=== PATIENT | female | born 1955 | race African-American/Black ===

== ENCOUNTER 2018-04-06 20:45 | Inpatient (IN) | payer MEDICARE, MEDICAID ==
[2018-04-06 23:11] VITALS: BP 155/99
[2018-04-06] MEDS ORDERED: Magnesium Hydroxide (MOM) 30 mL UDC PO PRN (23:11)
[2018-04-06] MEDS ORDERED: Maalox 30 mL Cup PO PRN (23:11)
--- NOTE | 2018-04-07 08:48 | History and Physical ---
History of Present Illness - HPI Chief Complaint: Suicide attempt HPI: Patient was take to ER due to suicide attempt, patient took an overdose of 30 tabs of trazadone. 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: Other (Patient has Hx of multiple back surgeries.) GI: Report: No Pertinent Hx Psych: Report: Depression Musculoskeletal: Report: Other (Multiple back surgeries.) Rheumatologic: Report: No pertinent Hx Infectious Disease: Report: No Pertinent Hx Renal/: Report: No Pertinent Hx Endocrine: Report: No Pertinent Hx Dermatology: Report: No Pertinent Hx - Past Surgical History Past Surgical History: Other (Multiple back surgeries.) Family Medical History - Family Member Mother History Unknown: Yes Social History Smoke: No Alcohol: None Drugs: Other (Opiates addiction) Lives: With Family Domestic Violence: Negative - Allergies Allergies/Adverse Reactions: Allergies Allergy/AdvReac Type Severity Reaction Status Date / Time No Known Allergies Allergy Verified 04/06/18 23:10 Review of Systems - Review of Systems Constitutional: Report: Weakness Eyes: Report: No Significant ENT: Report: No Significant Respiratory: Report: No Significant Cardiovascular: Report: No Significant Gastrointestinal: Report: No Significant Genitourinary: Report: No Significant Musculoskeletal: Report: Back Pain Skin: Report: No Significant Neurological: Report: Weakness Physical Exam - Physical Exam HEENT: Report: Ears Nose Throat within normal limits Neck: Report: Within normal limits Cardiovascular Systems: Report: Regular, Rate and Rhythm Respiratory: Report: Breath Sounds are within normal limits Back: Report: Other (Pain at palpation on all spine) Extremities: Report: Non-tender to palpation., Other (Patient uses a walker. Limited movements of lower extremities.) Skin: Report: Color of skin is within normal limits Neuro/Psych: Report: Depressed affect - Assessment Assessment: Patient is awake, alert, calm, in no acute distress, complaining of back pain. Dx: Suicide attempt, HTN, Chronic back pain, Long addiction to opiates. - Plan Plan: Patient is follow by Psychiatry, amlodipine is started, and norco. Will continue to monitor.
[2018-04-07] MEDS: Sulfamethoxazole/TMP 800/160mg Tab PO SCH ×2 (10:13→17:10)
[2018-04-07] MEDS: Multivitamin Tab PO SCH (10:14)
[2018-04-07] MEDS: Diclofenac 75 mg Tab PO SCH ×2 (10:14→17:10)
[2018-04-07] MEDS: Hydrocodone/APAP 5mg/325mg Tab PO PRN ×2 (12:31→20:57)
--- NOTE | 2018-04-08 02:09 | Psychiatric Evaluation ---
DATE OF SERVICE: 04/06/2018 IDENTIFYING DATA: The patient is a 62-year-old -[place]er woman living by herself. Information obtained directly interviewing the patient as well as reviewing the admission papers. JUSTIFICATION FOR HOSPITALIZATION: The patient is admitted under 5150 as a danger to self. CHIEF COMPLAINT: "I got upset and after having an argument with my daughter. I took a bunch of pills." HISTORY OF PRESENT ILLNESS: This is the first psychiatric hospitalization to [facility] for this patient who has taken an overdose on the Restoril in an attempt to end her life and hence the patient has been admitted on the 5150. As per the information obtained, the patient is reported to have an argument with her daughter. The patient is reporting that her 14-year-old daughter has been given an opportunity to attend the [place] and her daughter has dressed with the 14-year-old granddaughter and to that extent where the 14-year-old was looking like a 25-year-old and the patient has made a comment to her daughter and from there the argument ensued and the patient's daughter has put the patient down and the patient felt humiliated and hence taken an overdose on Restoril in an attempt to end her life. PAST PSYCHIATRIC HISTORY: The patient denies any prior psychiatric hospitalizations. MEDICAL HISTORY: Physical examination is requested by Dr. Ayers. SUBSTANCE ABUSE HISTORY: None. PHYSICAL OR SEXUAL ABUSE HISTORY: None. LEGAL PROBLEMS: None at this time. STRENGTH AND ASSETS: The patient is motivated. 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 MENTAL STATUS EXAMINATION: The patient is a 62-year-old woman looking her stated age, wheelchair bound, superficially cooperative. Eye contact is noted to be poor. Mood is depressed. Affect is constricted. Insight and judgment are noted to be very much impaired. Impulse control is limited. The patient has made a suicidal attempt by overdosing on medications. The patient has been taken to the [facility] Emergency Room. The patient has been medically stabilized and has been transferred over here for further stabilization. The patient denies auditory hallucinations, no delusions are noted. Insight and judgment at this time are noted to be impaired. Impulse control is noted to be poor. Attention span and concentration are noted to be fair, started on long-term memory also noted to be intact. DIAGNOSTIC IMPRESSION: AXIS I: Major depressive disorder, recurrent and severe. b. Overdose on medications. AXIS II: None. AXIS III: As per Dr. Ayers. IMMEDIATE TREATMENT PLAN: The patient is going to be observed on inpatient unit, provided with supportive psychotherapy. The patient is going to be closely monitored. Once stabilized, the patient is going to be discharged to self-care to be followed up on an outpatient basis. JOB# [id number]
[2018-04-08] MEDS: Hydrocodone/APAP 5mg/325mg Tab PO PRN ×3 (03:11→20:30)
--- NOTE | 2018-04-08 08:54 | General Progress Note ---
Subjective - Review of Systems Service Date: 04/08/18 Subjective: I am on pain Objective - Physical Exam Vitals and I&O: Vital Signs Temp 98.2 F 04/08/18 06:33 Pulse 84 04/08/18 06:33 Resp 19 04/08/18 06:33 BP 116/53 04/08/18 06:33 Pulse Ox 97 04/08/18 06:33 Intake & Output 04/07/18 04/08/18 04/08/18 18:59 06:59 18:59 Intake Total 240 Balance 240 Intake: Oral 240 Other: # Voids 4 3 # Bowel Movements 4 1 Stool Characteristics Liquid Brown Black Active Medications: Current Medications Acetaminophen/Hydrocodone Bitart ([place] 5mg/325mg) 1 tab PO Q6H PRN PRN Reason: Pain (Severe) Stop: 06/06/18 09:01 Last Admin: 04/08/18 03:11 Dose: 1 tab Al Hydrox/Mg Hydrox/Simethicone (Maalox) 30 ml PO Q4HR PRN PRN Reason: GI DISTRESS Stop: 06/05/18 23:10 Amlodipine Besylate (Norvasc) 5 mg PO DAILY [facility] Stop: 06/06/18 08:59 Last Admin: 04/07/18 10:13 Dose: 5 mg Diclofenac Sodium (Voltaren) 75 mg PO BID [facility] Stop: 06/06/18 09:14 Last Admin: 04/07/18 17:10 Dose: 75 mg Duloxetine HCl (Cymbalta) 30 mg PO DAILY [facility]; Protocol Stop: 06/07/18 08:59 Lorazepam (Ativan) 0.5 mg PO Q4HR PRN; Protocol PRN Reason: Anxiety Stop: 05/06/18 23:10 Magnesium Hydroxide (Milk Of Magnesia) 30 ml PO HS PRN PRN Reason: Constipation Miscellaneous (Clinical Monitoring) 1 ea MC DAILY [facility] Stop: 06/06/18 08:59 Multivitamins/Vitamin C (Theragran) 1 tab PO DAILY [facility] Stop: 06/06/18 08:59 Last Admin: 04/07/18 10:14 Dose: 1 tab Topiramate (Topamax) 25 mg PO DAILY [facility] Stop: 06/06/18 14:14 Last Admin: 04/07/18 14:30 Dose: 25 mg Trimethoprim/Sulfamethoxazole (Bactrim Ds) 1 tab PO BID [facility] Stop: 04/13/18 17:01 Last Admin: 04/07/18 17:10 Dose: 1 tab Zolpidem Tartrate (Ambien) 5 mg PO HS PRN PRN Reason: Insomnia Stop: 06/05/18 23:10 Last Admin: 04/07/18 20:58 Dose: 5 mg General: Alert, Oriented x3, No acute distress HEENT: Atraumatic Neck: Supple Cardiovascular: Regular rate Lungs: Clear to auscultation Abdomen: Bowel sounds Extremities: Other (No edema, walks with assistance) Neurological: Other (Walks with assistance) Skin: Other (warm and dry) Psych/Mental Status: Other (patient is angry) Assessment/Plan - Assessment Assessment: Patient is awake, alert, calm, in no acute distress, complaining of back pain. Dx: Suicide attempt, HTN, Chronic back pain, Long addiction to opiates, Migraine. - Plan Plan: Patient is follow by Psychiatry, amlodipine is started, and norco. Will continue to monitor.
[2018-04-08] MEDS: Diclofenac 75 mg Tab PO SCH ×2 (09:29→16:09)
[2018-04-08] MEDS: Sulfamethoxazole/TMP 800/160mg Tab PO SCH ×2 (09:29→16:09)
[2018-04-08] MEDS: Multivitamin Tab PO SCH (09:48)
--- NOTE | 2018-04-08 15:41 | Progress Notes ---
DATE: 04/08/2018 SUBJECTIVE: Staff was spoken to. The patient is interviewed. Mood is noted to be irritable. Affect is constricted. The patient is still feeling frustrated that her daughter has been talking back and putting her down like that. The patient's coping skills are noted to be extremely poor at this time. Insight and judgment are also noted to be impaired. No side effects to medications are noted. The patient has made suicidal gesture and the patient is insisting that she is okay now and she needs to be leaving. ASSESSMENT: The patient is still depressed. PLAN: To continue the patient with the current medications and followup. [facility]# [id number]
[2018-04-08] MEDS: Diphenoxylate/Atropine 2.5mg Tab PO PRN (17:20)
[2018-04-09] MEDS: Hydrocodone/APAP 5mg/325mg Tab PO PRN ×2 (02:15→20:16)
--- NOTE | 2018-04-09 08:45 | General Progress Note ---
Subjective - Review of Systems Service Date: 04/09/18 Subjective: I have pain Objective - Physical Exam Vitals and I&O: Vital Signs Temp 97.6 F 04/09/18 06:38 Pulse 85 04/09/18 06:38 Resp 20 04/09/18 06:38 BP 108/64 04/09/18 06:38 Pulse Ox 99 04/09/18 06:38 Intake & Output 04/08/18 04/09/18 04/09/18 18:59 06:59 18:59 Intake Total 360 Balance 360 Intake: Oral 360 Other: # Voids 2 # Bowel Movements 5 2 Active Medications: Current Medications Acetaminophen/Hydrocodone Bitart ([place] 5mg/325mg) 1 tab PO Q6H PRN PRN Reason: Pain (Severe) Stop: 06/06/18 09:01 Last Admin: 04/09/18 02:15 Dose: 1 tab Al Hydrox/Mg Hydrox/Simethicone (Maalox) 30 ml PO Q4HR PRN PRN Reason: GI DISTRESS Stop: 06/05/18 23:10 Amlodipine Besylate (Norvasc) 5 mg PO DAILY [facility] Stop: 06/06/18 08:59 Last Admin: 04/08/18 09:29 Dose: 5 mg Diclofenac Sodium (Voltaren) 75 mg PO BID [facility] Stop: 06/06/18 09:14 Last Admin: 04/08/18 16:09 Dose: 75 mg Diphenoxylate HCl/Atropine (Lomotil) 2 tab PO QID PRN PRN Reason: Diarrhea Stop: 06/07/18 16:59 Last Admin: 04/08/18 17:20 Dose: 2 tab Duloxetine HCl (Cymbalta) 30 mg PO DAILY [facility]; Protocol Stop: 06/07/18 08:59 Lorazepam (Ativan) 0.5 mg PO Q4HR PRN; Protocol PRN Reason: Anxiety Stop: 05/06/18 23:10 Last Admin: 04/08/18 22:39 Dose: 0.5 mg Magnesium Hydroxide (Milk Of Magnesia) 30 ml PO HS PRN PRN Reason: Constipation Miscellaneous (Clinical Monitoring) 1 ea MC DAILY [facility] Stop: 06/06/18 08:59 Multivitamins/Vitamin C (Theragran) 1 tab PO DAILY [facility] Stop: 06/06/18 08:59 Last Admin: 04/08/18 09:48 Dose: 1 tab Topiramate (Topamax) 25 mg PO DAILY [facility] Stop: 06/06/18 14:14 Last Admin: 04/08/18 09:29 Dose: 25 mg Trimethoprim/Sulfamethoxazole (Bactrim Ds) 1 tab PO BID [facility] Stop: 04/13/18 17:01 Last Admin: 04/08/18 16:09 Dose: 1 tab Zolpidem Tartrate (Ambien) 5 mg PO HS PRN PRN Reason: Insomnia Stop: 06/05/18 23:10 Last Admin: 04/08/18 20:30 Dose: 5 mg General: Alert, Oriented x3, No acute distress HEENT: Atraumatic Neck: Supple Cardiovascular: Regular rate Lungs: Clear to auscultation Abdomen: Bowel sounds Extremities: Other (No edema, walks with assistance) Neurological: Other (Walks with assistance) Skin: Other (warm and dry) Psych/Mental Status: Other (patient is angry) Assessment/Plan - Assessment Assessment: Patient is awake, alert, calm, in no acute distress, complaining of back pain. Yesterday she had diarrhea. Dx: Suicide attempt, HTN, Chronic back pain, Long addiction to opiates, Migraine. - Plan Plan: Patient is follow by Psychiatry, BP in control, patient is refusing blood work. Will continue to monitor.
[2018-04-09] MEDS ORDERED: Diphenoxylate/Atropine 2.5mg Tab PO PRN (09:15)
[2018-04-09] MEDS: Sulfamethoxazole/TMP 800/160mg Tab PO SCH ×2 (09:18→16:36)
[2018-04-09] MEDS: Multivitamin Tab PO SCH (09:18)
[2018-04-09] MEDS: Diclofenac 75 mg Tab PO SCH ×2 (09:24→16:36)
[2018-04-09] MEDS: Diphenoxylate/Atropine 2.5mg Tab PO PRN (09:33)
[2018-04-09 10:11] LABS: ALB/GLOB RATIO 1.4 (1.0-1.8); ALBUMIN 4.4 gm/dL (3.7-5.3); ALKALINE PHOSPHATASE 113 U/L (34-104); BILIRUBIN,TOTAL 0.5 mg/dL (0.3-1.0); BUN - UREA NITROGEN 16 mg/dL (7-25); CALCIUM SERUM 9.5 mg/dL (8.6-10.3); CARBON DIOXIDE 18.5 mEq/L (21.0-31.0); CHLORIDE 110 mEq/L (98-107); CHOLESTEROL 201 mg/dL (<200); CREATININE - SERUM 1.1 mg/dL (0.6-1.2); GFR AFRICAN-AMERICAN > 60.0 ml/min (>90); GFR NON AFRICAN-AMERICAN 53.3 ml/min; GLUCOSE 153 mg/dL (70-105); HDL -HIGH DENSITY LIPOPROTEIN 42 mg/dL (23-92); POTASSIUM SERUM 3.5 mEq/L (3.5-5.1); SGOT 14 U/L (13-39); SGPT/ALT 16 U/L (7-52); SODIUM SERUM 141 mEq/L (136-145); TOTAL PROTEIN,SERUM 7.6 gm/dL (6.0-8.3); TRIGLYCERIDES 111 mg/dL (<150)
[2018-04-09 10:16] LABS: % EOSINOPHILS 3.4 % (0.0-5.0); % LYMPHOCYTES 31.1 % (20.0-50.0); % NEUTROPHILS 56.5 % (40.0-80.0); BASOPHILE ABSOLUTE 0.1 Th/cumm (0-0.2); EOSINOPHILE ABSOLUTE 0.3 Th/cmm (0.1-0.4); HEMATOCRIT 38.9 % (41.0-60); HEMOGLOBIN 12.7 gm/dL (12-16); LYMPHOCYTE ABSOLUTE 2.3 Th/cmm (1.5-3.0); MEAN CELL VOLUME 90.1 fl (81-100); MEAN CORPUSCULAR HEMOGLOBIN 29.4 pg (27.0-31.0); MEAN CORPUSCULAR HGB CONC 32.6 pg (28.0-36.0); MEAN PLATELET VOLUME 7.8 fl; MONOCYTE ABSOLUTE 0.6 Th/cmm (0.3-1.0); NEUTROPHILE ABSOLUTE 4.1 Th/cmm (1.8-8.0); PLATELET COUNT 432 Th/cmm (150-400); RED BLOOD COUNT 4.32 Mil/cmm (3.80-5.10); RED CELL DISTRIBUTION WIDTH 14.4 % (11.5-20.0); WHITE BLOOD COUNT 7.4 Th/cmm (4.8-10.8)
--- NOTE | 2018-04-09 16:18 | Consultation ---
DATE OF CONSULTATION: 04/08/2018 REFERRING PHYSICIAN: Hallie Leonard MD TYPE OF CONSULTATION: Psychology. HISTORY OF PRESENT ILLNESS: The patient is a 62-year-old -[place] female. According to record review, the patient lives by herself and is being admitted under 5150 as a danger to self. The following is by record review and by the patient's self-report. The patient admits that she had taken an overdose of Restoril in order to attempt to end her life. The patient stated the reason was an argument with her daughter. The patient is not making much sense and is including information about her granddaughter as well. The record indicates the patient had felt disrespected and humiliated and therefore attempted to harm herself to punish those family members. The patient did not answer the question about continuing to have suicidal thoughts. The patient would not verbally contract for safety. PAST MEDICAL HISTORY: Please see history and physical by Dr. Ayers. PAST PSYCHIATRIC HISTORY: The patient denies any prior history. Records do not indicate any previous hospitalizations or past psychiatry services or psychology services. SUBSTANCE ABUSE HISTORY: The patient denies any history of alcohol, tobacco or illicit drug use. PSYCHOSOCIAL HISTORY: The patient lives at home by herself. The patient has a daughter named Nitza and a granddaughter. The patient states her marital status is single and her latter-day affiliation is Christian. The patient did not answer questions about occupational or educational history. The patient denied any history of physical or sexual abuse or any current legal problems. The patient is stating that she has family problems and is asking for the field nurse case manager or social security specialist to assist her. MENTAL STATUS EXAMINATION: The patient appears to be her stated age. The patient's attitude is superficially cooperative. Eye contact is poor. Speech is delayed. Mood is depressed. Affect is blunted. Thought process shows to be depressogenic. The patient admits a suicidal attempt by overdosing on medications. The patient did not answer questions about experiencing a wish to or any suicidal ideation, plan or intention. The patient was taken to [facility] Emergency Room and medically stabilized. The patient's behavior has been directable. The patient denied any auditory or visual hallucinations or delusions. Impulse control is inadequate. Concentration is fair. The patient's long-term memory is intact. She was able to give her correct age and date of and general milestones. Immediate and short term memory may have impairment. This needs further evaluation. The patient did not continue with the memory assessment. Sensorium is alert and oriented x 3. The patient did not participate in the interpretation of proverbs. Insight is poor. Judgement is impaired. DIAGNOSTIC IMPRESSION: AXIS I: 1 A. Major depressive disorder, recurrent, severe. B. Overdose on medications. AXIS II: Deferred. AXIS III: Per Dr. Ayers. TREATMENT PLAN: The patient has been seen by Dr. Leonard for psychiatric evaluation and for the management of the patient's psychotropic medications. We will provide supportive psychotherapy to include cognitive behavioral therapy to reduce the patient's depression. We will provide consistent daily opportunities for the patient to verbally contract for safety. We will continue to monitor for suicidal ideation, plan or intention. We will encourage the patient to disclose any suicidal thoughts to staff so that we can provide suicide a prevention approach to her treatment. We will provide coping strategies for phase of life issues. We will encourage the patient to dialogue with her daughter. The patient seems to respond well to ignacio-based beliefs for coping. We will encourage the patient to use some of those coping strategies and approaches for problem solving and resolution in the conflicted family relationships that she is experiencing. We will continue to provide supportive psychotherapy and include suicide prevention. We will encourage the patient to follow up with a psychologist on an outpatient basis for her depression and encourage the patient's family to participate in family therapy as well. Thank you, Dr. Leonard for this consult and the opportunity to participate in this patient's care. [facility]# [id number] [facility]ENTERSte[facility]
[2018-04-10] MEDS: Hydrocodone/APAP 5mg/325mg Tab PO PRN ×5 (03:40→22:50)
--- NOTE | 2018-04-10 06:26 | Progress Notes ---
DATE: 04/09/2018 PSYCHIATRIC PROGRESS NOTE SUBJECTIVE: Staff was spoken to. The patient is interviewed. Mood is irritable. Affect is constricted. Coping skills are noted to be very poor at this time. The patient has been angry and upset and is claiming that she is not treated right. The patient is also stating that she has been trying to get in touch with her cousin, ____ to manage her affairs. manager of engineering has been spoken to and the staff have been spoken to coordinate a meeting with the cousin and then to see if someone is going to be keeping an eye on the patient when she gets out. The patient does not want me to talk to her daughter at this time. ASSESSMENT: The patient is still depressed and suicidal. PLAN: To continue the patient with the supportive therapy. I encouraged the patient to verbalize the concerns rather than to act out. JOB# [id number]
[2018-04-10] MEDS: Sulfamethoxazole/TMP 800/160mg Tab PO SCH ×2 (08:23→16:16)
[2018-04-10] MEDS: Multivitamin Tab PO SCH (08:23)
[2018-04-10] MEDS: Diphenoxylate/Atropine 2.5mg Tab PO PRN (08:24)
--- NOTE | 2018-04-10 08:48 | General Progress Note ---
Subjective - Review of Systems Service Date: 04/10/18 Subjective: I need pain medicine every 4 hours. Objective - Results Result Diagrams: 04/09/18 09:00 04/09/18 09:00 Recent Labs: Laboratory Last Values WBC 7.4 Th/cmm (4.8-10.8) 04/09/18 09:00 RBC 4.32 Mil/cmm (3.80-5.10) 04/09/18 09:00 Hgb 12.7 gm/dL (12-16) 04/09/18 09:00 Hct 38.9 % (41.0-60) L 04/09/18 09:00 MCV 90.1 fl (81-100) 04/09/18 09:00 MCH 29.4 pg (27.0-31.0) 04/09/18 09:00 MCHC Differential 32.6 pg (28.0-36.0) 04/09/18 09:00 RDW 14.4 % (11.5-20.0) 04/09/18 09:00 Plt Count 432 Th/cmm (150-400) H 04/09/18 09:00 MPV 7.8 fl 04/09/18 09:00 Neutrophils % 56.5 % (40.0-80.0) 04/09/18 09:00 Lymphocytes % 31.1 % (20.0-50.0) 04/09/18 09:00 Monocytes % 8.0 % (2.0-10.0) 04/09/18 09:00 Eosinophils % 3.4 % (0.0-5.0) 04/09/18 09:00 Basophils % 1.0 % (0.0-2.0) 04/09/18 09:00 Sodium 141 mEq/L (136-145) 04/09/18 09:00 Potassium 3.5 mEq/L (3.5-5.1) 04/09/18 09:00 Chloride 110 mEq/L (98-107) H 04/09/18 09:00 Carbon Dioxide 18.5 mEq/L (21.0-31.0) L 04/09/18 09:00 Anion Gap 16.0 (7.0-16.0) 04/09/18 09:00 BUN 16 mg/dL (7-25) 04/09/18 09:00 Creatinine 1.1 mg/dL (0.6-1.2) 04/09/18 09:00 Est GFR ( Amer) > 60.0 ml/min (>90) 04/09/18 09:00 Est GFR (Non-Af Amer) 53.3 ml/min 04/09/18 09:00 BUN/Creatinine Ratio 14.5 04/09/18 09:00 Glucose 153 mg/dL (70-105) H 04/09/18 09:00 Calcium 9.5 mg/dL (8.6-10.3) 04/09/18 09:00 Total Bilirubin 0.5 mg/dL (0.3-1.0) 04/09/18 09:00 AST 14 U/L (13-39) 04/09/18 09:00 ALT 16 U/L (7-52) 04/09/18 09:00 Alkaline Phosphatase 113 U/L (34-104) H 04/09/18 09:00 Total Protein 7.6 gm/dL (6.0-8.3) 04/09/18 09:00 Albumin 4.4 gm/dL (3.7-5.3) 04/09/18 09:00 Globulin 3.2 gm/dL 04/09/18 09:00 Albumin/Globulin Ratio 1.4 (1.0-1.8) 04/09/18 09:00 Triglycerides 111 mg/dL (<150) 04/09/18 09:00 Cholesterol 201 mg/dL (<200) H 04/09/18 09:00 LDL Cholesterol Direct 155 mg/dL (75-193) 04/09/18 09:00 HDL Cholesterol 42 mg/dL (23-92) 04/09/18 09:00 TSH 0.50 uIU/ml (0.34-5.60) 04/09/18 09:00 - Physical Exam Vitals and I&O: Vital Signs Temp 98.2 F 04/10/18 06:37 Pulse 84 04/10/18 08:24 Resp 18 04/10/18 06:37 BP 128/74 04/10/18 08:24 Pulse Ox 96 04/10/18 06:37 Intake & Output 04/09/18 04/10/18 04/10/18 18:59 06:59 18:59 Intake Total 1000 120 Balance 1000 120 Intake: Oral 1000 120 Other: # Voids 3 3 # Bowel Movements 1 Active Medications: Current Medications Acetaminophen/Hydrocodone Bitart ([place] 5mg/325mg) 1 tab PO Q6H PRN PRN Reason: Pain (Severe) Stop: 06/06/18 09:01 Last Admin: 04/10/18 03:40 Dose: 1 tab Al Hydrox/Mg Hydrox/Simethicone (Maalox) 30 ml PO Q4HR PRN PRN Reason: GI DISTRESS Stop: 06/05/18 23:10 Amlodipine Besylate (Norvasc) 5 mg PO DAILY [facility] Stop: 06/06/18 08:59 Last Admin: 04/10/18 08:24 Dose: 5 mg Diclofenac Sodium (Voltaren) 75 mg PO BID [facility] Stop: 06/06/18 09:14 Last Admin: 04/09/18 16:36 Dose: 75 mg Diphenoxylate HCl/Atropine (Lomotil) 2 tab PO QID PRN PRN Reason: Diarrhea Stop: 06/07/18 16:59 Last Admin: 04/10/18 08:24 Dose: 2 tab Duloxetine HCl (Cymbalta) 30 mg PO DAILY [facility]; Protocol Stop: 06/07/18 08:59 Last Admin: 04/09/18 09:26 Dose: 30 mg Lorazepam (Ativan) 0.5 mg PO Q4HR PRN; Protocol PRN Reason: Anxiety Stop: 05/06/18 23:10 Last Admin: 04/10/18 01:45 Dose: 0.5 mg Magnesium Hydroxide (Milk Of Magnesia) 30 ml PO HS PRN PRN Reason: Constipation Miscellaneous (Clinical Monitoring) 1 ea MC DAILY [facility] Stop: 06/06/18 08:59 Multivitamins/Vitamin C (Theragran) 1 tab PO DAILY [facility] Stop: 06/06/18 08:59 Last Admin: 04/10/18 08:23 Dose: 1 tab Topiramate (Topamax) 25 mg PO DAILY [facility] Stop: 06/06/18 14:14 Last Admin: 04/10/18 08:23 Dose: 25 mg Trimethoprim/Sulfamethoxazole (Bactrim Ds) 1 tab PO BID [facility] Stop: 04/13/18 17:01 Last Admin: 04/10/18 08:23 Dose: 1 tab Zolpidem Tartrate (Ambien) 5 mg PO HS PRN PRN Reason: Insomnia Stop: 06/05/18 23:10 Last Admin: 04/10/18 02:08 Dose: 5 mg General: Alert, Oriented x3, No acute distress HEENT: Atraumatic Neck: Supple Cardiovascular: Regular rate Lungs: Clear to auscultation Abdomen: Bowel sounds Extremities: Other (No edema, walks with assistance) Neurological: Other (Walks with assistance) Skin: Other (warm and dry) Psych/Mental Status: Other (patient is angry) Assessment/Plan - Assessment Assessment: Patient is awake, alert, calm, in no acute distress, continue complaining of back pain, despite treatment. Yesterday she had diarrhea. Dx: Suicide attempt, HTN, Chronic back pain, Long addiction to opiates, Migraine. - Plan Plan: Patient is follow by Psychiatry, BP in control. She continue with diarrhea. Flint is change to q 4 hrs. Will continue to monitor.
[2018-04-10] MEDS: Diclofenac 75 mg Tab PO SCH ×2 (08:58→16:15)
--- NOTE | 2018-04-10 23:47 | Progress Notes ---
DATE: 04/10/2018 SUBJECTIVE: The staff was spoken to. The patient is interviewed. Mood is noted to be depressed. Affect is constricted. Patient is isolative and withdrawn. The patient is stating that she wants to go to ____ rehabilitation and patient wants to be there somewhere close to the family in the [place] ____ facility [place] that is going to be close to the patient. The patient is stating that she is still having difficult time in dealing with the daughters and the patient is stating that she has assigned her cousin to be the mink farmer at this time. ASSESSMENT: The patient is still depressed. PLAN: To continue the patient with the supportive therapy and followup. [facility]# [id number]
[2018-04-11] MEDS: Hydrocodone/APAP 5mg/325mg Tab PO PRN ×4 (03:18→21:20)
[2018-04-11] MEDS: Sulfamethoxazole/TMP 800/160mg Tab PO SCH ×2 (08:31→16:38)
[2018-04-11] MEDS: Multivitamin Tab PO SCH (08:32)
[2018-04-11] MEDS: Diclofenac 75 mg Tab PO SCH ×2 (08:39→16:38)
--- NOTE | 2018-04-11 10:36 | General Progress Note ---
Subjective - Review of Systems Service Date: 04/11/18 Subjective: I am fine Objective - Results Result Diagrams: 04/09/18 09:00 04/09/18 09:00 Recent Labs: Laboratory Last Values WBC 7.4 Th/cmm (4.8-10.8) 04/09/18 09:00 RBC 4.32 Mil/cmm (3.80-5.10) 04/09/18 09:00 Hgb 12.7 gm/dL (12-16) 04/09/18 09:00 Hct 38.9 % (41.0-60) L 04/09/18 09:00 MCV 90.1 fl (81-100) 04/09/18 09:00 MCH 29.4 pg (27.0-31.0) 04/09/18 09:00 MCHC Differential 32.6 pg (28.0-36.0) 04/09/18 09:00 RDW 14.4 % (11.5-20.0) 04/09/18 09:00 Plt Count 432 Th/cmm (150-400) H 04/09/18 09:00 MPV 7.8 fl 04/09/18 09:00 Neutrophils % 56.5 % (40.0-80.0) 04/09/18 09:00 Lymphocytes % 31.1 % (20.0-50.0) 04/09/18 09:00 Monocytes % 8.0 % (2.0-10.0) 04/09/18 09:00 Eosinophils % 3.4 % (0.0-5.0) 04/09/18 09:00 Basophils % 1.0 % (0.0-2.0) 04/09/18 09:00 Sodium 141 mEq/L (136-145) 04/09/18 09:00 Potassium 3.5 mEq/L (3.5-5.1) 04/09/18 09:00 Chloride 110 mEq/L (98-107) H 04/09/18 09:00 Carbon Dioxide 18.5 mEq/L (21.0-31.0) L 04/09/18 09:00 Anion Gap 16.0 (7.0-16.0) 04/09/18 09:00 BUN 16 mg/dL (7-25) 04/09/18 09:00 Creatinine 1.1 mg/dL (0.6-1.2) 04/09/18 09:00 Est GFR ( Amer) > 60.0 ml/min (>90) 04/09/18 09:00 Est GFR (Non-Af Amer) 53.3 ml/min 04/09/18 09:00 BUN/Creatinine Ratio 14.5 04/09/18 09:00 Glucose 153 mg/dL (70-105) H 04/09/18 09:00 Calcium 9.5 mg/dL (8.6-10.3) 04/09/18 09:00 Total Bilirubin 0.5 mg/dL (0.3-1.0) 04/09/18 09:00 AST 14 U/L (13-39) 04/09/18 09:00 ALT 16 U/L (7-52) 04/09/18 09:00 Alkaline Phosphatase 113 U/L (34-104) H 04/09/18 09:00 Total Protein 7.6 gm/dL (6.0-8.3) 04/09/18 09:00 Albumin 4.4 gm/dL (3.7-5.3) 04/09/18 09:00 Globulin 3.2 gm/dL 04/09/18 09:00 Albumin/Globulin Ratio 1.4 (1.0-1.8) 04/09/18 09:00 Triglycerides 111 mg/dL (<150) 04/09/18 09:00 Cholesterol 201 mg/dL (<200) H 04/09/18 09:00 LDL Cholesterol Direct 155 mg/dL (75-193) 04/09/18 09:00 HDL Cholesterol 42 mg/dL (23-92) 04/09/18 09:00 TSH 0.50 uIU/ml (0.34-5.60) 04/09/18 09:00 - Physical Exam Vitals and I&O: Vital Signs Temp 98 F 04/10/18 20:29 Pulse 79 04/11/18 08:31 Resp 19 04/10/18 20:29 BP 131/75 04/11/18 08:31 Pulse Ox 97 04/10/18 20:29 Intake & Output 04/10/18 04/11/18 04/11/18 18:59 06:59 18:59 Intake Total 1000 240 Output Total 1 Balance 1000 239 Intake: Oral 1000 240 Output: Urine/Stool Mix 1 Other: # Voids 3 1 # Bowel Movements 1 Active Medications: Current Medications Acetaminophen/Hydrocodone Bitart ([place] 5mg/325mg) 1 tab PO Q4H PRN PRN Reason: Pain (Severe) Stop: 06/06/18 09:01 Last Admin: 04/11/18 07:47 Dose: 1 tab Al Hydrox/Mg Hydrox/Simethicone (Maalox) 30 ml PO Q4HR PRN PRN Reason: GI DISTRESS Stop: 06/05/18 23:10 Amlodipine Besylate (Norvasc) 5 mg PO DAILY [facility] Stop: 06/06/18 08:59 Last Admin: 04/11/18 08:31 Dose: 5 mg Diclofenac Sodium (Voltaren) 75 mg PO BID [facility] Stop: 06/06/18 09:14 Last Admin: 04/11/18 08:39 Dose: 75 mg Diphenoxylate HCl/Atropine (Lomotil) 2 tab PO QID PRN PRN Reason: Diarrhea Stop: 06/07/18 16:59 Last Admin: 04/10/18 08:24 Dose: 2 tab Duloxetine HCl (Cymbalta) 30 mg PO DAILY [facility]; Protocol Stop: 06/07/18 08:59 Last Admin: 04/11/18 08:32 Dose: 30 mg Lorazepam (Ativan) 0.5 mg PO Q4HR PRN; Protocol PRN Reason: Anxiety Stop: 05/06/18 23:10 Last Admin: 04/10/18 01:45 Dose: 0.5 mg Magnesium Hydroxide (Milk Of Magnesia) 30 ml PO HS PRN PRN Reason: Constipation Miscellaneous (Clinical Monitoring) 1 ea MC DAILY [facility] Stop: 06/06/18 08:59 Multivitamins/Vitamin C (Theragran) 1 tab PO DAILY [facility] Stop: 06/06/18 08:59 Last Admin: 04/11/18 08:32 Dose: 1 tab Topiramate (Topamax) 25 mg PO DAILY [facility] Stop: 06/06/18 14:14 Last Admin: 04/11/18 08:31 Dose: 25 mg Trimethoprim/Sulfamethoxazole (Bactrim Ds) 1 tab PO BID [facility] Stop: 04/13/18 17:01 Last Admin: 04/11/18 08:31 Dose: 1 tab Zolpidem Tartrate (Ambien) 5 mg PO HS PRN PRN Reason: Insomnia Stop: 06/05/18 23:10 Last Admin: 04/10/18 20:58 Dose: 5 mg General: Alert, Oriented x3, No acute distress HEENT: Atraumatic Neck: Supple Cardiovascular: Regular rate Lungs: Clear to auscultation Abdomen: Bowel sounds Extremities: Other (No edema, walks with assistance) Neurological: Other (Walks with assistance) Skin: Other (warm and dry) Psych/Mental Status: Other (patient is angry) Assessment/Plan - Assessment Assessment: Patient is awake, alert, calm, in no acute distress, continue complaining of back pain, despite treatment. She continue with diarrhea, but she is not dehydrated on with fever. Dx: Suicide attempt, HTN, Chronic back pain, Long addiction to opiates, Migraine. - Plan Plan: Patient is follow by Psychiatry, BP in control. She continue with diarrhea. [place] is change to q 4 hrs. Stool culture is requested. Will continue to monitor. Nutritional Asmnt/Malnutr-PDOC - Dietary Evaluation Malnutrition Findings (Please click <Entered> for more info): Nutritional Asmnt/Malnutrition Start: 04/10/18 13: 47 Text: Status: Complete Freq: Protocol: Document 04/10/18 15:11 LCHENG (Rec: 04/10/18 15:15 [email or web address] [email or web address]) Nutritional Asmnt/Malnutrition Patient General Information Nutritional Screening Moderate Risk Diagnosis Si& depression Pertinent Medical Hx/Surgical Hx HTN, depression, multiple back surgeries Subjective Information Pt seen in her room, awake and alert. Pt stated she has no appetite at all. But EMR showed PO intake 75-100%. Current Diet Order/ Nutrition Support regular Pertinent Medications theragran Pertinent Labs 04/09 Cl 110, glucose 153, chol 201 Nutritional Hx/Data Height 1.57 m Height (Calculated Centimeters) 157.5 Current Weight (lbs) 102.058 kg Weight (Calculated Kilograms) 102.1 Weight (Calculated Grams) 186596.3 [place] Body Weight 110 Body Mass Index (BMI) 41.1 Weight Status Morbidly Obese GI Symptoms GI Symptoms None Last BM 04/09 Difficult in: None Skin Integrity/Comment: intact Current %PO Good (75-100%) Estimated Nutritional Goals BEE in Kcals: Adj wt of IBW Calories/Kcals/Kg 25-30 Kcals Calculated 2902-4309 Protein: Adj wt of IBW Protein g/k Protein Calculated 63 Fluid: ml 1575-1890ml (1ml/kcal) Nutritional Problem No current Nutrition Prob Problem N/A Malnutrition Alert Is there a minimum of two criteria No selected? Query Text:Check all the applicable criteria. A minimum of two criteria are recommended for diagnosis of either severe or non-severe malnutrition. Malnutrition Related to Morbid Obesity Malnutrition related to morbid obesity No Intervention/Recommendation Comments 1. Continue with regular diet as ordered. Monitor glucose level and recomend checking A1c level to assess the need for CCHO diet. 2. Monitor PO intake, wt, labs and skin integrity 3. F/U as low risk in 7 days Expected Outcomes/Goals Expected Outcomes/Goals 1. PO intake to meet at least 75% of nutritional needs. 2. Wt stability, skin to remain intact, labs to approach WNL.
--- NOTE | 2018-04-11 13:24 | Progress Notes ---
DATE: 04/11/2018 SUBJECTIVE: Staff was spoken to. The patient is interviewed. Mood is noted to be less irritable. Affect is appropriate. The patient is stating that she would rather go to a rehab close to where the family lives. The patient is stating that since the daughters have mentioned something to her about the granddaughter going to the [facility], she has not been talking to them and she states that it is hurting the kids at this time. ASSESSMENT: The patient's depression is resolving. The patient is motivated to seek treatment. PLAN: To continue the patient with the supportive therapy and work with the case folder with regards to finding a senior care facility close to where the patient lives. JOB# [id number]
[2018-04-11] MEDS ORDERED: Probiotic Screen MC PRN (15:01)
[2018-04-11] MEDS: Lactobacillus Rhamnosus GG 15 Billion CFU CAP.SPRINK PO SCH (16:42)
--- NOTE | 2018-04-11 20:54 | Progress Notes ---
DATE: 04/10/2018 PSYCHOLOGY PROGRESS NOTE SUBJECTIVE: The patient is seen and is interviewed. Case is discussed with staff. The patient presents as less irritable this visit. The patient requested to go to placement close to where her family resides. The patient continues to have the same family conflict. The staff reports the patient has become more goal oriented. OBJECTIVE: Mood is less irritable. Affect is appropriate. Thought process shows to be more goal oriented. The patient denied any delusions or hallucinations. The patient's behavior has been compliant with care. ASSESSMENT AND PLAN: The patient's depression is resolving. We recommended that the patient and family attend family therapy on an outpatient basis. We provided supportive psychotherapy to include coping strategies for phase of life issues. 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 JOB# [id number] ROM
[2018-04-12] MEDS: Hydrocodone/APAP 5mg/325mg Tab PO PRN ×6 (03:11→23:10)
[2018-04-12] MEDS: Multivitamin Tab PO SCH (08:09)
[2018-04-12] MEDS: Sulfamethoxazole/TMP 800/160mg Tab PO SCH ×2 (08:09→16:28)
[2018-04-12] MEDS: Lactobacillus Rhamnosus GG 15 Billion CFU CAP.SPRINK PO SCH (08:09)
[2018-04-12] MEDS: Diclofenac 75 mg Tab PO SCH ×2 (08:12→16:28)
--- NOTE | 2018-04-12 09:32 | General Progress Note ---
Subjective - Review of Systems Service Date: 04/12/18 Subjective: I am better Objective - Results Result Diagrams: 04/09/18 09:00 04/09/18 09:00 Recent Labs: Laboratory Last Values WBC 7.4 Th/cmm (4.8-10.8) 04/09/18 09:00 RBC 4.32 Mil/cmm (3.80-5.10) 04/09/18 09:00 Hgb 12.7 gm/dL (12-16) 04/09/18 09:00 Hct 38.9 % (41.0-60) L 04/09/18 09:00 MCV 90.1 fl (81-100) 04/09/18 09:00 MCH 29.4 pg (27.0-31.0) 04/09/18 09:00 MCHC Differential 32.6 pg (28.0-36.0) 04/09/18 09:00 RDW 14.4 % (11.5-20.0) 04/09/18 09:00 Plt Count 432 Th/cmm (150-400) H 04/09/18 09:00 MPV 7.8 fl 04/09/18 09:00 Neutrophils % 56.5 % (40.0-80.0) 04/09/18 09:00 Lymphocytes % 31.1 % (20.0-50.0) 04/09/18 09:00 Monocytes % 8.0 % (2.0-10.0) 04/09/18 09:00 Eosinophils % 3.4 % (0.0-5.0) 04/09/18 09:00 Basophils % 1.0 % (0.0-2.0) 04/09/18 09:00 Sodium 141 mEq/L (136-145) 04/09/18 09:00 Potassium 3.5 mEq/L (3.5-5.1) 04/09/18 09:00 Chloride 110 mEq/L (98-107) H 04/09/18 09:00 Carbon Dioxide 18.5 mEq/L (21.0-31.0) L 04/09/18 09:00 Anion Gap 16.0 (7.0-16.0) 04/09/18 09:00 BUN 16 mg/dL (7-25) 04/09/18 09:00 Creatinine 1.1 mg/dL (0.6-1.2) 04/09/18 09:00 Est GFR ( Amer) > 60.0 ml/min (>90) 04/09/18 09:00 Est GFR (Non-Af Amer) 53.3 ml/min 04/09/18 09:00 BUN/Creatinine Ratio 14.5 04/09/18 09:00 Glucose 153 mg/dL (70-105) H 04/09/18 09:00 Calcium 9.5 mg/dL (8.6-10.3) 04/09/18 09:00 Total Bilirubin 0.5 mg/dL (0.3-1.0) 04/09/18 09:00 AST 14 U/L (13-39) 04/09/18 09:00 ALT 16 U/L (7-52) 04/09/18 09:00 Alkaline Phosphatase 113 U/L (34-104) H 04/09/18 09:00 Total Protein 7.6 gm/dL (6.0-8.3) 04/09/18 09:00 Albumin 4.4 gm/dL (3.7-5.3) 04/09/18 09:00 Globulin 3.2 gm/dL 04/09/18 09:00 Albumin/Globulin Ratio 1.4 (1.0-1.8) 04/09/18 09:00 Triglycerides 111 mg/dL (<150) 04/09/18 09:00 Cholesterol 201 mg/dL (<200) H 04/09/18 09:00 LDL Cholesterol Direct 155 mg/dL (75-193) 04/09/18 09:00 HDL Cholesterol 42 mg/dL (23-92) 04/09/18 09:00 TSH 0.50 uIU/ml (0.34-5.60) 04/09/18 09:00 - Physical Exam Vitals and I&O: Vital Signs Temp 98.2 F 04/12/18 06:44 Pulse 87 04/12/18 08:09 Resp 19 04/12/18 07:45 BP 125/72 04/12/18 08:09 Pulse Ox 100 04/12/18 06:44 Intake & Output 04/11/18 04/12/18 04/12/18 18:59 06:59 18:59 Intake Total 1000 240 Balance 1000 240 Intake: Oral 1000 240 Other: # Voids 4 2 # Bowel Movements 1 Active Medications: Current Medications Acetaminophen/Hydrocodone Bitart ([place] 5mg/325mg) 1 tab PO Q4H PRN PRN Reason: Pain (Severe) Stop: 06/06/18 09:01 Last Admin: 04/12/18 07:30 Dose: 1 tab Al Hydrox/Mg Hydrox/Simethicone (Maalox) 30 ml PO Q4HR PRN PRN Reason: GI DISTRESS Stop: 06/05/18 23:10 Amlodipine Besylate (Norvasc) 5 mg PO DAILY [facility] Stop: 06/06/18 08:59 Last Admin: 04/12/18 08:09 Dose: 5 mg Diclofenac Sodium (Voltaren) 75 mg PO BID [facility] Stop: 06/06/18 09:14 Last Admin: 04/12/18 08:12 Dose: 75 mg Diphenoxylate HCl/Atropine (Lomotil) 2 tab PO QID PRN PRN Reason: Diarrhea Stop: 06/07/18 16:59 Last Admin: 04/10/18 08:24 Dose: 2 tab Duloxetine HCl (Cymbalta) 30 mg PO DAILY [facility]; Protocol Stop: 06/07/18 08:59 Last Admin: 04/12/18 08:09 Dose: 30 mg Lactobacillus Rhamnosus (Culturelle 15b) 1 each PO DAILY [facility] Stop: 06/10/18 14:59 Last Admin: 04/12/18 08:09 Dose: 1 each Lorazepam (Ativan) 0.5 mg PO Q4HR PRN; Protocol PRN Reason: Anxiety Stop: 05/06/18 23:10 Last Admin: 04/10/18 01:45 Dose: 0.5 mg Magnesium Hydroxide (Milk Of Magnesia) 30 ml PO HS PRN PRN Reason: Constipation Miscellaneous (Clinical Monitoring) 1 ea MC DAILY [facility] Stop: 06/06/18 08:59 Miscellaneous (Probiotic Screen) 1 ea MC PRN PRN PRN Reason: PROTOCOL Stop: 06/10/18 15:00 Multivitamins/Vitamin C (Theragran) 1 tab PO DAILY [facility] Stop: 06/06/18 08:59 Last Admin: 04/12/18 08:09 Dose: 1 tab Topiramate (Topamax) 25 mg PO DAILY [facility] Stop: 06/06/18 14:14 Last Admin: 04/12/18 08:09 Dose: 25 mg Trimethoprim/Sulfamethoxazole (Bactrim Ds) 1 tab PO BID [facility] Stop: 04/13/18 17:01 Last Admin: 04/12/18 08:09 Dose: 1 tab Zolpidem Tartrate (Ambien) 5 mg PO HS PRN PRN Reason: Insomnia Stop: 06/05/18 23:10 Last Admin: 04/11/18 21:20 Dose: 5 mg General: Alert, Oriented x3, No acute distress HEENT: Atraumatic Neck: Supple Cardiovascular: Regular rate Lungs: Clear to auscultation Abdomen: Bowel sounds Extremities: Other (No edema, walks with assistance) Neurological: Other (Walks with assistance) Skin: Other (warm and dry) Psych/Mental Status: Other (patient is angry) Assessment/Plan - Assessment Assessment: Patient is awake, alert, calm, in no acute distress, Pain is improved. Dx: Suicide attempt, HTN, Chronic back pain, Long addiction to opiates, Migraine. - Plan Plan: Patient is follow by Psychiatry, BP in control. [place] is change to q 4 hrs. Stool culture is requested. Will continue to monitor. Nutritional Asmnt/Malnutr-PDOC - Dietary Evaluation Malnutrition Findings (Please click <Entered> for more info): Nutritional Asmnt/Malnutrition Start: 04/10/18 13: 47 Text: Status: Complete Freq: Protocol: Document 04/10/18 15:11 LCHENG (Rec: 04/10/18 15:15 LCHENG [email or web address]) Nutritional Asmnt/Malnutrition Patient General Information Nutritional Screening Moderate Risk Diagnosis Si& depression Pertinent Medical Hx/Surgical Hx HTN, depression, multiple back surgeries Subjective Information Pt seen in her room, awake and alert. Pt stated she has no appetite at all. But EMR showed PO intake 75-100%. Current Diet Order/ Nutrition Support regular Pertinent Medications theragran Pertinent Labs 04/09 Cl 110, glucose 153, chol 201 Nutritional Hx/Data Height 1.57 m Height (Calculated Centimeters) 157.5 Current Weight (lbs) 102.058 kg Weight (Calculated Kilograms) 102.1 Weight (Calculated Grams) 996888.3 [place] Body Weight 110 Body Mass Index (BMI) 41.1 Weight Status Morbidly Obese GI Symptoms GI Symptoms None Last BM 04/09 Difficult in: None Skin Integrity/Comment: intact Current %PO Good (75-100%) Estimated Nutritional Goals BEE in Kcals: Adj wt of IBW Calories/Kcals/Kg 25-30 Kcals Calculated 5364-3803 Protein: Adj wt of IBW Protein g/k Protein Calculated 63 Fluid: ml 1575-1890ml (1ml/kcal) Nutritional Problem No current Nutrition Prob Problem N/A Malnutrition Alert Is there a minimum of two criteria No selected? Query Text:Check all the applicable criteria. A minimum of two criteria are recommended for diagnosis of either severe or non-severe malnutrition. Malnutrition Related to Morbid Obesity Malnutrition related to morbid obesity No Intervention/Recommendation Comments 1. Continue with regular diet as ordered. Monitor glucose level and recomend checking A1c level to assess the need for CCHO diet. 2. Monitor PO intake, wt, labs and skin integrity 3. F/U as low risk in 7 days Expected Outcomes/Goals Expected Outcomes/Goals 1. PO intake to meet at least 75% of nutritional needs. 2. Wt stability, skin to remain intact, labs to approach WNL.
--- NOTE | 2018-04-12 20:11 | Progress Notes ---
DATE: 04/12/2018 SUBJECTIVE: Staff was spoken to. The patient is interviewed. Mood is noted to be irritable and frustrated. Insight and judgment at this time noted to be still impaired. Impulse control is noted to be limited. Coping skills are noted to be limited. The patient has been getting easily upset that she has been in here, she needs to go to the half-way facility for the rehabilitation. ASSESSMENT: The patient is still depressed. PLAN: To continue the patient with the supportive therapy, encouraged the patient to verbalize the concerns rather than to act out. JOB# [id number]
[2018-04-13] MEDS: Hydrocodone/APAP 5mg/325mg Tab PO PRN ×4 (03:36→16:41)
--- NOTE | 2018-04-13 09:05 | General Progress Note ---
Subjective - Review of Systems Service Date: 04/13/18 Subjective: I am better Objective - Results Result Diagrams: 04/09/18 09:00 04/09/18 09:00 Recent Labs: Laboratory Last Values WBC 7.4 Th/cmm (4.8-10.8) 04/09/18 09:00 RBC 4.32 Mil/cmm (3.80-5.10) 04/09/18 09:00 Hgb 12.7 gm/dL (12-16) 04/09/18 09:00 Hct 38.9 % (41.0-60) L 04/09/18 09:00 MCV 90.1 fl (81-100) 04/09/18 09:00 MCH 29.4 pg (27.0-31.0) 04/09/18 09:00 MCHC Differential 32.6 pg (28.0-36.0) 04/09/18 09:00 RDW 14.4 % (11.5-20.0) 04/09/18 09:00 Plt Count 432 Th/cmm (150-400) H 04/09/18 09:00 MPV 7.8 fl 04/09/18 09:00 Neutrophils % 56.5 % (40.0-80.0) 04/09/18 09:00 Lymphocytes % 31.1 % (20.0-50.0) 04/09/18 09:00 Monocytes % 8.0 % (2.0-10.0) 04/09/18 09:00 Eosinophils % 3.4 % (0.0-5.0) 04/09/18 09:00 Basophils % 1.0 % (0.0-2.0) 04/09/18 09:00 Sodium 141 mEq/L (136-145) 04/09/18 09:00 Potassium 3.5 mEq/L (3.5-5.1) 04/09/18 09:00 Chloride 110 mEq/L (98-107) H 04/09/18 09:00 Carbon Dioxide 18.5 mEq/L (21.0-31.0) L 04/09/18 09:00 Anion Gap 16.0 (7.0-16.0) 04/09/18 09:00 BUN 16 mg/dL (7-25) 04/09/18 09:00 Creatinine 1.1 mg/dL (0.6-1.2) 04/09/18 09:00 Est GFR ( Amer) > 60.0 ml/min (>90) 04/09/18 09:00 Est GFR (Non-Af Amer) 53.3 ml/min 04/09/18 09:00 BUN/Creatinine Ratio 14.5 04/09/18 09:00 Glucose 153 mg/dL (70-105) H 04/09/18 09:00 Calcium 9.5 mg/dL (8.6-10.3) 04/09/18 09:00 Total Bilirubin 0.5 mg/dL (0.3-1.0) 04/09/18 09:00 AST 14 U/L (13-39) 04/09/18 09:00 ALT 16 U/L (7-52) 04/09/18 09:00 Alkaline Phosphatase 113 U/L (34-104) H 04/09/18 09:00 Total Protein 7.6 gm/dL (6.0-8.3) 04/09/18 09:00 Albumin 4.4 gm/dL (3.7-5.3) 04/09/18 09:00 Globulin 3.2 gm/dL 04/09/18 09:00 Albumin/Globulin Ratio 1.4 (1.0-1.8) 04/09/18 09:00 Triglycerides 111 mg/dL (<150) 04/09/18 09:00 Cholesterol 201 mg/dL (<200) H 04/09/18 09:00 LDL Cholesterol Direct 155 mg/dL (75-193) 04/09/18 09:00 HDL Cholesterol 42 mg/dL (23-92) 04/09/18 09:00 TSH 0.50 uIU/ml (0.34-5.60) 04/09/18 09:00 - Physical Exam Vitals and I&O: Vital Signs Temp 98.7 F 04/13/18 06:28 Pulse 77 04/13/18 06:28 Resp 18 04/13/18 06:28 BP 129/74 04/13/18 06:28 Pulse Ox 99 04/13/18 06:28 Intake & Output 04/12/18 04/13/18 04/13/18 18:59 06:59 18:59 Intake Total 800 240 Balance 800 240 Intake: Oral 800 240 Other: # Voids 4 1 # Bowel Movements 1 Active Medications: Current Medications Acetaminophen/Hydrocodone Bitart ([place] 5mg/325mg) 1 tab PO Q4H PRN PRN Reason: Pain (Severe) Stop: 06/06/18 09:01 Last Admin: 04/13/18 07:49 Dose: 1 tab Al Hydrox/Mg Hydrox/Simethicone (Maalox) 30 ml PO Q4HR PRN PRN Reason: GI DISTRESS Stop: 06/05/18 23:10 Amlodipine Besylate (Norvasc) 5 mg PO DAILY [facility] Stop: 06/06/18 08:59 Last Admin: 04/12/18 08:09 Dose: 5 mg Diclofenac Sodium (Voltaren) 75 mg PO BID [facility] Stop: 06/06/18 09:14 Last Admin: 04/12/18 16:28 Dose: 75 mg Diphenoxylate HCl/Atropine (Lomotil) 2 tab PO QID PRN PRN Reason: Diarrhea Stop: 06/07/18 16:59 Last Admin: 04/10/18 08:24 Dose: 2 tab Duloxetine HCl (Cymbalta) 30 mg PO DAILY [facility]; Protocol Stop: 06/07/18 08:59 Last Admin: 04/12/18 08:09 Dose: 30 mg Lactobacillus Rhamnosus (Culturelle 15b) 1 each PO DAILY [facility] Stop: 06/10/18 14:59 Last Admin: 04/12/18 08:09 Dose: 1 each Lorazepam (Ativan) 0.5 mg PO Q4HR PRN; Protocol PRN Reason: Anxiety Stop: 05/06/18 23:10 Last Admin: 04/10/18 01:45 Dose: 0.5 mg Magnesium Hydroxide (Milk Of Magnesia) 30 ml PO HS PRN PRN Reason: Constipation Miscellaneous (Clinical Monitoring) 1 ea MC DAILY [facility] Stop: 06/06/18 08:59 Miscellaneous (Probiotic Screen) 1 ea MC PRN PRN PRN Reason: PROTOCOL Stop: 06/10/18 15:00 Multivitamins/Vitamin C (Theragran) 1 tab PO DAILY [facility] Stop: 06/06/18 08:59 Last Admin: 04/12/18 08:09 Dose: 1 tab Topiramate (Topamax) 25 mg PO DAILY [facility] Stop: 06/06/18 14:14 Last Admin: 04/12/18 08:09 Dose: 25 mg Trimethoprim/Sulfamethoxazole (Bactrim Ds) 1 tab PO BID [facility] Stop: 04/13/18 17:01 Last Admin: 04/12/18 16:28 Dose: 1 tab Zolpidem Tartrate (Ambien) 5 mg PO HS PRN PRN Reason: Insomnia Stop: 06/05/18 23:10 Last Admin: 04/12/18 20:49 Dose: 5 mg General: Alert, Oriented x3, No acute distress HEENT: Atraumatic Neck: Supple Cardiovascular: Regular rate Lungs: Clear to auscultation Abdomen: Bowel sounds Extremities: Other (No edema, walks with assistance) Neurological: Other (Walks with assistance) Skin: Other (warm and dry) Psych/Mental Status: Other (patient is angry) Assessment/Plan - Assessment Assessment: Patient is awake, alert, calm, in no acute distress, Pain is improved. Dx: Suicide attempt, HTN, Chronic back pain, Long addiction to opiates, Migraine. - Plan Plan: Patient is follow by Psychiatry, BP in control. [place] is change to q 4 hrs. Stool culture is requested. Will continue to monitor. Nutritional Asmnt/Malnutr-PDOC - Dietary Evaluation Malnutrition Findings (Please click <Entered> for more info): Nutritional Asmnt/Malnutrition Start: 04/10/18 13: 47 Text: Status: Complete Freq: Protocol: Document 04/10/18 15:11 LCHENG (Rec: 04/10/18 15:15 LCHENG [email or web address]) Nutritional Asmnt/Malnutrition Patient General Information Nutritional Screening Moderate Risk Diagnosis Si& depression Pertinent Medical Hx/Surgical Hx HTN, depression, multiple back surgeries Subjective Information Pt seen in her room, awake and alert. Pt stated she has no appetite at all. But EMR showed PO intake 75-100%. Current Diet Order/ Nutrition Support regular Pertinent Medications theragran Pertinent Labs 04/09 Cl 110, glucose 153, chol 201 Nutritional Hx/Data Height 1.57 m Height (Calculated Centimeters) 157.5 Current Weight (lbs) 102.058 kg Weight (Calculated Kilograms) 102.1 Weight (Calculated Grams) 319222.3 [place] Body Weight 110 Body Mass Index (BMI) 41.1 Weight Status Morbidly Obese GI Symptoms GI Symptoms None Last BM 04/09 Difficult in: None Skin Integrity/Comment: intact Current %PO Good (75-100%) Estimated Nutritional Goals BEE in Kcals: Adj wt of IBW Calories/Kcals/Kg 25-30 Kcals Calculated 6806-9452 Protein: Adj wt of IBW Protein g/k Protein Calculated 63 Fluid: ml 1575-1890ml (1ml/kcal) Nutritional Problem No current Nutrition Prob Problem N/A Malnutrition Alert Is there a minimum of two criteria No selected? Query Text:Check all the applicable criteria. A minimum of two criteria are recommended for diagnosis of either severe or non-severe malnutrition. Malnutrition Related to Morbid Obesity Malnutrition related to morbid obesity No Intervention/Recommendation Comments 1. Continue with regular diet as ordered. Monitor glucose level and recomend checking A1c level to assess the need for CCHO diet. 2. Monitor PO intake, wt, labs and skin integrity 3. F/U as low risk in 7 days Expected Outcomes/Goals Expected Outcomes/Goals 1. PO intake to meet at least 75% of nutritional needs. 2. Wt stability, skin to remain intact, labs to approach WNL.
[2018-04-13] MEDS: Diclofenac 75 mg Tab PO SCH ×2 (11:25→16:40)
[2018-04-13] MEDS: Sulfamethoxazole/TMP 800/160mg Tab PO SCH ×2 (11:25→16:40)
[2018-04-13] MEDS: Lactobacillus Rhamnosus GG 15 Billion CFU CAP.SPRINK PO SCH (11:26)
[2018-04-13] MEDS: Multivitamin Tab PO SCH (11:30)
--- NOTE | 2018-04-14 04:27 | Progress Notes ---
DATE: 04/13/2018 SUBJECTIVE: Staff was spoken to. The patient is interviewed. Mood is noted to be anxious. Affect is appropriate. The patient is not suicidal or homicidal. The patient is stating that what all she needs is rehabilitation. She does not need to be here. The patient is not presenting any threat to harm self or others. ASSESSMENT: The patient is stabilizing. PLAN: To [facility] the patient to [facility] for further [facility]. JOB# [id number]
--- NOTE | 2018-04-15 03:24 | Progress Notes ---
DATE: 04/13/2018 PSYCHOLOGY PROGRESS NOTE SUBJECTIVE: The patient is seen and is interviewed. Case is discussed with staff. The patient presents as somewhat anxious. The patient is stating that she needs to go to physical therapy. The patient was informed that her continued care at her placement would include this type of treatment. The staff reports the patient has become more compliant with her care and treatment. OBJECTIVE: Mood is mildly anxious. Affect is appropriate. Thought process shows to be more goal oriented. The patient denied any hallucinations or delusions. The patient's behavior has become compliant with her care and treatment. ASSESSMENT AND PLAN: The patient appears to be improving and stabilizing. We provided coping strategies for phase of life issues as well as positive reinforcement for the patient to stay compliant with all aspects of her care and treatment. No followup is indicated as the staff reports the patient is most likely being discharged today. Thank you, Dr. Leonard, for this consult and the opportunity to participate in this patient's care. JOB# [id number] ROM
== END 2018-04-13 16:50 | DRG 885 ==
LOC: GERO2 20:45 → GERO 04-07 19:09
DX: F33.2 Major depressive disorder, recurrent severe without psychotic features (principal); T43.212A Poisoning by selective serotonin and norepinephrine reuptake inhibitors, intentional self-harm, initial encounter; F11.20 Opioid dependence, uncomplicated; I10 Essential (primary) hypertension; G89.29 Other chronic pain; M54.9 Dorsalgia, unspecified; G43.909 Migraine, unspecified, not intractable, without status migrainosus; R19.7 Diarrhea, unspecified; Y92.098 Other place in other non-institutional residence as the place of occurrence of the external cause
CPT/HCPCS: 36415-UA; 7610; 80053-TC; 80061-TC; 83036-90; 84443-TC; 85025-TC